=== PATIENT | female | born 1945 | race Caucasian/White ===

== ENCOUNTER 2018-01-07 05:29 | Inpatient (IN) | payer OTHER ==
[2017-12-30 08:52] LABS: URINE BILIRUBIN NEGATIVE (Negative); URINE BLOOD NEGATIVE (Negative); URINE CLARITY CLEAR; URINE COLOR YELLOW; URINE GLUCOSE-RANDOM* NEGATIVE (Negative); URINE KETONES NEGATIVE (Negative); URINE NITRITE-REFLEX NEGATIVE (Negative); URINE PROTEIN (DIPSTICK) NEGATIVE (Negative); URINE UROBILINOGEN 0.2 E.U./dl (0.2-1.0)
[2017-12-30 08:55] LABS: URINE LEUKOCYTES-REFLEX 1+ (Negative)
[2017-12-30 09:20] LABS: HEMATOCRIT 36.6 % (37.0-47.0); HEMOGLOBIN 12.6 gm/dL (12.0-15.0); MCH 32.3 pg (26.0-34.0); MCHC 34.5 g/dL (28.0-37.0); MCV 93.6 fL (80.0-100.0); RBC 3.91 mil/uL (4.20-5.00); WBC 4.8 thou/uL (4.0-11.0)
[2017-12-30 09:30] LABS: PROTIME 10.6 Seconds (9.3-11.4)
[2017-12-30 09:32] LABS: BACTERIA-REFLEX 1-9 Few /HPF (None Seen); CASTS None Seen /LPF (None Seen); CRYSTALS None Seen /LPF (None Seen); SQUAMOUS 0-3 Few /LPF (0-3); URINE RBC None Seen /HPF (0-2); URINE WBC-REFLEX 0-5 Rare /HPF (0-5)
[2017-12-30 09:34] LABS: ALBUMIN 3.8 g/dL (3.4-5.0); CALCIUM 9.5 mg/dL (8.5-10.1); CREATININE 0.7 mg/dL (0.6-1.0); POTASSIUM 4.2 mmol/L (3.5-5.1); TOTAL BILIRUBIN 0.7 mg/dL (<0.1-1.0); TOTAL PROTEIN 6.9 g/dL (6.4-8.2)
[~2018-01-07] VITALS: Ht 162.6 cm; Wt 58.9 kg
--- NOTE | ~2018-01-07 | O ---
[facility] [place] [address] OPERATIVE REPORT Name: DARRICK MOREAU Room #: 150-2 [facility] IN M.R.#: [id number] Admission: 01/07/18 Attend Phys: Hernán Lyle MD Discharge: Date of : 49 Report #: [id number] THIS REPORT FOR: //name// CC: FAM unknown Hernán Lyle DATE OF SERVICE: 01/07/2018 PREOPERATIVE DIAGNOSIS: Right hip osteoarthritis. POSTOPERATIVE DIAGNOSIS: Right hip osteoarthritis. PROCEDURE: Right total hip arthroplasty. SURGEON: Hernán Lyle MD. FOOD SALES CLERK: Carlee Wan PA-C. INDICATIONS FOR FOOD SALES CLERK: Throughout the case, extensive retraction and manipulation of the hip was required including reduction and dislocation of the hip joint. This was afforded to me by my retail loan originator assistant. ANESTHESIA: LMA. IMPLANTS: [employer]hew size 11 high offset Synergy press fit stem, a size 54 R3 acetabular cup with 1 acetabular screw, a size 36+8 cobalt chrome head. ESTIMATED BLOOD LOSS: 100 mL. COMPLICATIONS: None. SPECIMENS: None. CONDITION UPON LEAVING THE OPERATING ROOM: Stable. INDICATION FOR PROCEDURE: The patient is a 72-year-old female with severe right hip osteoarthritis. She had failed conservative measures for this and after discussion with her, she elected for right total hip arthroplasty. DESCRIPTION OF PROCEDURE: Risks, benefits, alternatives, complications were discussed in detail with the patient including but not limited to risk of anesthesia, risk of damage to nerves, arteries, blood vessels, risk for infection, bleeding, risk for continued hip pain, leg length discrepancy, instability and need for reoperation. Informed consent was obtained from the patient. Right hip was appropriately marked in the preoperative holding area. IV clindamycin was given for preoperative antibiotics. She was brought to the [address] [address] OPERATIVE REPORT Name: DARRICK MOREAU Room #: 150-2 ADM IN M.R.#: [id number] Admission: 01/07/18 Attend Phys: Hernán Lyle MD Discharge: Date of : 49 Report #: [id number] operating room and placed in the supine position on the operating room table. LMA anesthesia was induced without complication. She was then placed in the left lateral decubitus position with the right hip uppermost. Right hip and lower extremity were prepped and draped in normal sterile fashion. Timeout was performed properly identifying the patient and procedure as well as the instrumentation and implants. All in the operating room were in agreement. Standard posterior approach to the hip was made with 10 blade through the skin. Dissection was taken down to the fascia with Bovie cautery and the fascia was cleaned with Waddell elevator. Fresh 10 blade was used to make a fascial incision. This was taken proximally and distally with curved Becerra scissor. Charnley retractor was placed. Trochanteric bursa was taken down with Bovie cautery. Piriformis tendon was identified, tagged and taken down with Bovie. Short external rotators were also taken down with Bovie cautery. Capsulotomy was made and capsule ends were tagged for later repair. Hip was dislocated and there was extensive osteoarthritic change in the femoral head. Femoral neck cut was made 1 cm proximal to lesser trochanter based on preoperative templating and femoral head was removed. Deep acetabular retractors were placed and the labrum was removed sharply. Pulvinar was removed with Bovie cautery. Acetabulum was then sequentially reamed up to a size 54, at which point there was excellent bleeding cancellous bone. A size 53 trial cup was placed and found to have a good fit. Final size 54 R3 acetabular cup then placed and seated. One acetabular screw was placed for backup fixation. Polyethylene liner for a 36 head was placed. Attention was turned to the femur. This was reamed and broached up to a size 11, at which point the size 11 broach was stable. This trialed with a high offset neck and a 36+0 head. Hip was reduced, taken through range of motion, found to be stable, found to be short on the right when compared to left and was felt that could be made up for the final implant. Hip was dislocated. Broach was removed and final size 11 high offset Synergy press fit stem was placed. This was then trialed with a +4 and +8 head. The +8 head had better stability and leg lengths. Hip was dislocated and a final size 36+8 cobalt chrome head was placed. Hip was reduced, taken through range of motion, found to be stable, found to have equal leg lengths. The hip was thoroughly irrigated with normal saline. A periarticular injection consisting of morphine, ropivacaine, epinephrine and Toradol was placed around the hip joint capsule. A gram of vancomycin was placed deep in the joint. The capsule and piriformis were repaired with 0 FiberWire. Fascia was closed with 0 Vicryl, skin was closed with 2-0 Vicryl, 3-0 Monocryl. Dermabond and a KAREN dressing were applied. The patient tolerated this procedure well and went to recovery room under care of anesthesia postoperatively. By: [id number] Hernán Lyle MD /emeterio
--- NOTE | ~2018-01-07 | EKG ---
[address] [address] ELECTROCARDIOGRAM REPORT Name: DARRICK MOREAU Room #: PRE IN ..#: [id number] Admission: Attend Phys: Hernán Lyle MD Discharge: Date of : 49 Report #: [id number] THIS REPORT FOR: //name// [facility] Test Date: 2017-12-30 Test Time: 09:12:17 Pat Name: DARRICK MOREAU Department: Room: Gender: F [employer]: shayla : 1945 Requested By: Hernán Lyle Order Number: [id number] MD: Owen Carmona Measurements Intervals [place] Rate: 77 P: 72 NE: 149 QRS: 38 QRSD: 144 T: 33 QT: 411 QTc: 466 Interpretive Statements Sinus rhythm Right bundle branch block No previous ECG available for comparison Electronically Signed On 12-30-2017 13:25:13 CDT by Owen Carmona [email or web address] <ELECTRONICALLY SIGNED> By: Owen Carmona MD 12/30/17 1325 0912 1 Owen Carmona MD /EPI
[~2018-01-07 05:29] MED LIST: ASHWAGANDHA PO; B COMPLEX1 EACH PO; BIOTIN10000 MC1 PO; CALCITRATE200 MG PO; CASCARA SAGRADA1 ML PO; CELEXA20 MG PO; COPPER2 MG PO; GALZIN25 MG PO; GINKGO BILOBA500 MG PO; GLUCOSAMINE CH1 EA10 PO; HYALURONIC ACI1 EACH PO; MAGNESIUM CITR100 MG PO; PROBIOTIC1 EAC1 PO; SELENIUM200 MC3 PO; TURMERIC500 M2 PO; VITAMIN A10000 UNI3 PO; VITAMIN B-12500 MCG PO; VITAMIN D5000 UNIT PO; VITAMIN K100 MCG PO; VITAMINC500 PO; [UNRECOGNIZED DRUG - OTHER]; [UNRECOGNIZED DRUG - OTHER] PO; [UNRECOGNIZED DRUG - OTHER] PO; [UNRECOGNIZED DRUG - OTHER] PO; [UNRECOGNIZED DRUG - OTHER] PO; [UNRECOGNIZED DRUG - OTHER] PO; [UNRECOGNIZED DRUG - REMARK] PO
[2018-01-07 09:32] VITALS: BP 131/74
[2018-01-07 18:21] VITALS: BP 98/66
[2018-01-07 22:04] VITALS: BP 109/69
[2018-01-08 04:02] VITALS: BP 106/61
[2018-01-08 06:02] LABS: HEMATOCRIT 28.4 % (37.0-47.0); MCH 32.8 pg (26.0-34.0); MCHC 35.1 g/dL (28.0-37.0); MCV 93.4 fL (80.0-100.0); RBC 3.04 mil/uL (4.20-5.00)
[2018-01-08 08:06] VITALS: BP 103/68
[2018-01-08] MEDS ORDERED: NEURONTIN 300300 M1 PO (13:21)
[2018-01-08] MEDS ORDERED: TRI-BUFFERED A325 M1 PO (13:21)
[2018-01-08 16:06] VITALS: BP 103/68
== END 2018-01-08 18:11 | disposition home or self-care (01) | DRG 470 ==
LOC: TBA 05:29 → 4E 05:29 → PRE 05:37 → 4E 17:46
PROVIDERS: Orthopaedic Surgery
PROC: 0SR90JZ Replacement of Right Hip Joint with Synthetic Substitute, Open Approach (ICD-10-PCS; principal; 2018-01-07)
DX: M16.11 Unilateral primary osteoarthritis, right hip (principal); F32.9 Major depressive disorder, single episode, unspecified; Z88.0 Allergy status to penicillin; Z91.040 Latex allergy status; Z90.710 Acquired absence of both cervix and uterus; Z90.49 Acquired absence of other specified parts of digestive tract
CPT/HCPCS: 10783; 50010; 50101; 50382; 50414; 51771; 53000; 53078; 53367; 54118; 56524; 56527; 56528; 56530; 57095; 57103; 62110; 62900; 70005

== ENCOUNTER 2018-11-13 12:16 | Inpatient (IN) | payer OTHER ==
[~2018-11-13] VITALS: Ht 162.6 cm; Wt 56.7 kg
--- NOTE | ~2018-11-13 | O ---
[facility] [place] [address] OPERATIVE REPORT Name: DARRICK MOREAU Room #: 150-2 ADM IN M.R.#: [id number] Admission: 11/27/18 ������������������ Attend Phys: Hernán Lyle MD Discharge: ������������������ Date of : 49 Report #: [id number] THIS REPORT FOR: //name// CC: VIRAJ MONTERO Physician staff Hernán Lyle DATE OF SERVICE: 11/27/2018 PREOPERATIVE DIAGNOSIS: Left hip osteoarthritis. POSTOPERATIVE DIAGNOSIS: Left hip osteoarthritis. PROCEDURE: Left total hip arthroplasty. SURGEON: Hernán Lyle MD. CRYPTOLOGICAL TECHNICIAN: Carlee Wan PA-C. INDICATIONS FOR CRYPTOLOGICAL TECHNICIAN: Throughout the case, extensive retraction and manipulation of the hip was required including dislocation and reduction. This was afforded to me by my licensed physical therapy assistant. ANESTHESIA: LMA. IMPLANTS: [employer] size 12 Synergy high offset cemented stem, a size 52 R3 acetabular cup with one acetabular screw and a size 36+4 cobalt chrome head. ESTIMATED BLOOD LOSS: 50 mL. COMPLICATIONS: None. SPECIMENS: None. CONDITION UPON LEAVING THE OPERATING ROOM: Stable. INDICATIONS FOR PROCEDURE: The patient is a 73-year-old female with severe left hip osteoarthritis. She had failed conservative measures for this and after discussion with her, she elected for a left total hip arthroplasty. DESCRIPTION OF PROCEDURE: Risks, benefits, alternatives, complications were discussed in detail with the patient including but not limited to risk of anesthesia, risk of damage to nerves, arteries, blood vessels, risk for infection, bleeding, leg length discrepancy, instability and need for reoperation. Informed consent was obtained from the patient. Left hip was appropriately marked in the preoperative holding area. IV clindamycin was given [address] [address] OPERATIVE REPORT Name: DARRICK MOREAU Room #: 150-2 ADM IN M.R.#: [id number] Admission: 11/27/18 ������������������ Attend Phys: Hernán Lyle MD Discharge: ������������������ Date of : 49 Report #: [id number] for preoperative antibiotics. She was brought to the operating room and placed in the supine position on the operating room table. LMA anesthesia was induced without complication. She was then placed in the right lateral decubitus position with the left hip uppermost. Left hip and lower extremity were then prepped and draped in normal sterile fashion. Timeout was performed properly identifying the patient and procedure as well as the instrumentation and implants. All in the operating room were in agreement. Standard posterior approach to the hip was made with 10 blade through the skin. Dissection was taken down to the fascia with Bovie cautery and a Waddell elevator was used to clean the fascia. Fresh 10 blade was used to make a fascial incision. This was taken proximally and distally with curved Becerra scissors. Charnley retractor was placed. Trochanteric bursa was taken down with Bovie cautery. Piriformis tendon was identified, tagged and taken down with Bovie cautery. Short external rotators were also taken down with Bovie cautery. Capsulotomy was made and capsule ends were tagged for later repair. Hip was dislocated and there was extensive osteoarthritic change of the femoral head. Femoral neck cut was made 1 cm proximal to lesser trochanter based on preoperative templating and the femoral head was removed. Deep acetabular retractors were placed. Labrum was removed sharply. Pulvinar was removed with Bovie cautery. Acetabulum was then sequentially reamed up to a size 52, at which point, there was excellent bleeding cancellous bone. This was trialed with a size 51 socket and found to have a good fit. A final size 52 R3 acetabular cup was then placed and seated. One acetabular screw was placed for backup fixation. Attention was then turned to the femur. This was reamed and broached up to a size 10, at which point it appeared the size 10 broach was stable. This was trialed with a high offset neck and a 36+4 head. Hip was reduced, taken through range of motion, found to be stable, found to have somewhat short leg length on the left compared to the right. It was felt we could make up for this with the final implant. A size 10 Synergy press fit stem was then placed; however, this seated further down to the broach and actually was somewhat unstable and so this was removed and the canal was reamed up to a size 12 and then broached. A size 12 broach was still unstable. There were no identified fractures of the femur, so it was felt that we should cement a stem as we could not get a stable press fit. A size 12 Synergy cemented stem was then cemented in place using standard cementation techniques. After the cement cured, this was trialed with a 36+4 head. Hip was reduced, taken through range of motion, found to be stable, found to have equal leg lengths. Hip was dislocated and a final size 36+4 cobalt chrome head was placed. Hip was reduced, taken through range of motion, found to be stable, found to have equal leg lengths. Wound was thoroughly irrigated with normal saline. A gram of vancomycin was placed deep in the joint. Periarticular injection consisting of morphine, ropivacaine, epinephrine and Toradol was placed around the hip joint capsule. The capsule and piriformis were repaired with 0 FiberWire. Fascia was closed with 0 Vicryl, skin was closed with 2-0 Vicryl, 3-0 Monocryl. Dermabond and a KAREN dressing was applied. The patient [facility] [address] [place] [address] OPERATIVE REPORT Name: DARRICK MOREAU Room #: 150-2 ADM IN M.R.#: [id number] Admission: 11/27/18 ������������������ Attend Phys: Hernán Lyle MD Discharge: ������������������ Date of : 49 Report #: [id number] tolerated this procedure well and went to the recovery room under care of anesthesia postoperatively. ��������������������������������������������� ���������������������������������������� By: ��������������������������������������������� [id number] Hernán Lyle MD /nt
[~2018-11-13 12:16] MED LIST changes: +NEURONTIN 300300 M1 PO; +TRI-BUFFERED A325 M1 PO
[2018-11-17] MEDS ORDERED: NETTLE LEAF10000 GM PO (09:51)
[2018-11-20 13:48] LABS: HEMATOCRIT 37.6 % (37.0-47.0); HEMOGLOBIN 12.6 gm/dL (12.0-15.0); MCH 32.2 pg (26.0-34.0); MCHC 33.7 g/dL (28.0-37.0); MCV 95.7 fL (80.0-100.0); RBC 3.93 mil/uL (4.20-5.00); RDW 12.7 % (10.5-14.5)
[2018-11-20 13:57] LABS: URINE BILIRUBIN NEGATIVE (Negative); URINE BLOOD NEGATIVE (Negative); URINE CLARITY CLEAR; URINE COLOR YELLOW; URINE GLUCOSE-RANDOM* NEGATIVE (Negative); URINE KETONES NEGATIVE (Negative); URINE LEUKOCYTES-REFLEX NEGATIVE (Negative); URINE NITRITE-REFLEX NEGATIVE (Negative); URINE PROTEIN (DIPSTICK) NEGATIVE (Negative); URINE SPECIFIC GRAVITY <= 1.005 (1.005-1.035); URINE UROBILINOGEN 0.2 E.U./dl (0.2-1.0)
[2018-11-20 14:04] LABS: ALBUMIN 4.2 g/dL (3.4-5.0); CALCIUM 9.3 mg/dL (8.5-10.1); CREATININE 0.7 mg/dL (0.6-1.0); POTASSIUM 4.4 mmol/L (3.5-5.1)
[2018-11-20 14:05] LABS: PROTIME 10.8 Seconds (9.3-11.4)
[2018-11-27 09:12] VITALS: BP 135/64
[2018-11-27 13:43] VITALS: BP 102/68
--- NOTE | 2018-11-27 16:20 | NUR ---
73 YO FEMALE TRANSFERED FROM PACU. A&OX4, DROWSEY. IV INTACT IN R HAND INFUSING FLUIDS W/O COMPS. KAREN DRSG TO L HIP C/D/I, ICE BAG IN PLACE. PT ORIENTED TO ROOM/CALL LIGHT. FAMILY AT BEDSIDE. PT HAS WALKED PATIENT WITH WALKER. WILL CONT POC.
[2018-11-27 19:20] VITALS: BP 120/77
--- NOTE | 2018-11-28 04:06 | NUR ---
PATIENT ALERT AND ORIENTED X4. C/O PAIN ONLY ONCE. DRESSING ON L HIP INTACT. UP TO BATHROOM WITH ASSIST OF ONE. SLEPT MOST OF THE NIGHT,
[2018-11-28 04:53] VITALS: BP 134/68
[2018-11-28 05:46] LABS: HEMOGLOBIN 10.1 gm/dL (12.0-15.0); MCH 32.5 pg (26.0-34.0); MCHC 33.6 g/dL (28.0-37.0); MCV 96.5 fL (80.0-100.0); RBC 3.11 mil/uL (4.20-5.00); RDW 12.9 % (10.5-14.5); WBC 8.3 thou/uL (4.0-11.0)
[2018-11-28 07:55] VITALS: BP 126/67
[2018-11-28] MEDS ORDERED: ASPIR 8181 MG PO (13:57)
[2018-11-28 16:00] VITALS: BP 122/62
--- NOTE | 2018-11-28 16:30 | NUR ---
PT ADMITTED RELATED TO LT TOTAL HIP REPLACEMENT. CM REVIEWED CHART AND SPOKE WITH CARE TEAM. CM MET WITH PT AT BEDSIDE THIS DAY. PT INDICATED SHE LIVES IN A [place] ALONE WITH NO STEPS THAT SHE WOULD HAVE TO USE UPON DC. PT INDICATED SHE HAD A FWW BUT NOW THEY CAN'T FIND IT. SHE WILL PAY OUT OF POCKET FOR ONE THROUGH [employer]. PT IS ESTABLISHED WITH OP PT AT [facility] IN [place]. PT TO DC HOME TOMORROW. NO OTHER CM INTERVETNION INDICATED. CASE CLOSED.
[2018-11-28 19:32] VITALS: BP 121/65
[2018-11-29 04:05] VITALS: BP 135/70
[2018-11-29 05:28] LABS: HEMATOCRIT 29.2 % (37.0-47.0); HEMOGLOBIN 10.1 gm/dL (12.0-15.0); MCH 33.2 pg (26.0-34.0); MCHC 34.5 g/dL (28.0-37.0); RBC 3.04 mil/uL (4.20-5.00); WBC 6.2 thou/uL (4.0-11.0)
--- NOTE | 2018-11-29 06:04 | NUR ---
PATIENT ALERT AND ORIENTED X4 BUT TAKES A LOT OF EXPLAINING AND REEXPLAINING SOME THINGS FOR HER TO GET IT. TRIED TO EXPLAIN TO HER THAT PAIN MEDS NEED TO BE ASKED FOR, THAT WE DO NOT AUTOMATICALLY BRING THEM TO THE PATIENT. SHE WANTED TO KNOW HOW WE KNEW WHAT MEDS SHE WAS ON AND WHERE DID WE GET THE ORDER. SHE WAS UPSET WHEN I DID NOT BRING THE PAIN MED EARLY OR I DID NOT WAKE HER UP. TRIED TO TELL HER THAT WE DON'T WAKE THEM UP FOR PAIN MEDS. SHE SAID SHE COULD SEE WHY SO MANY PATIENT . i TOLD HER THAT IS HOW PATIENTS GET ADDICTED TO THE PAIN MED. TRIED TO EDUCATED HER ABOUT PAIN MEDS AND NURSING PROTOCOL. PATIENT DOES NOT YET UNDERSTAND THE WHOLE THING, NEEDS A LOT MORE EDUCATION ON THE SUBJECT. SLEPT AND ON DURING NIGHT.
[2018-11-29 08:49] VITALS: BP 90/58
[2018-11-29 09:31] VITALS: BP 90/58
--- NOTE | 2018-11-29 09:55 | NUR ---
ASSUMED CLIENT CARE AT 7 AM. PATIENT'S HIP PAIN WAS CONTROLLED WITH PRESCRIBED PAIN MEDICATION, NORCO, AND MORNING MEDICATIONS WERE ADMINISTERED. PATIENT WAS ASSESSED, PATIENT ON ROOM AIR. PATIENT IS CALM, COOPERATIVE, AND PLEASANT. DOCTOR CASSI DISCHARGED THE PATIENT. DISCHARGE SUMMARY COMPILE AND REVIEWED WITH PATIENT AND SON. RX DC COPY GIVEN AFTER SIGNING BY THE PATIENT. AT 09:55 AM PATIENT D/C HOME WITH SON IN WHEELCHAIR ACCOMPANIED BY HORSE SHOW JUDGE.
== END 2018-11-29 10:09 | disposition home or self-care (01) | DRG 470 ==
LOC: PRE 12:16 → TBA 11-27 08:28 → 4E 11-27 08:28 → PRE 11-27 09:12 → 4E 11-27 12:43 → PRE 11-27 13:15 → 4E 11-29 10:09
PROVIDERS: ADMIT Orthopaedic Surgery
PROC: 0SRB019 Replacement of Left Hip Joint with Metal Synthetic Substitute, Cemented, Open Approach (ICD-10-PCS; principal; 2018-11-27)
DX: M16.12 Unilateral primary osteoarthritis, left hip (principal); Z88.0 Allergy status to penicillin; Z91.048 Other nonmedicinal substance allergy status
CPT/HCPCS: 10783; 50010; 50101; 50382; 50414; 51057; 51130; 51225; 51226; 53000; 53078; 54118; 56460; 56524; 56527; 56528; 56530; 57095; 57103; 62110; 62900; 70005